=== PATIENT | male | born 1990 | race Caucasian/White ===

== ENCOUNTER 2021-01-28 08:40 | Outpatient (REF) | payer OTHER, SELFPAY | END 2021-01-28 08:41 | disposition home or self-care (01) | LOC: HO.HMGCLDS 08:40 | PROVIDERS: Visit Provider Internal Medicine | DX: Z20.822 Contact with and (suspected) exposure to COVID-19 (principal) | CPT/HCPCS: C9803; U0003; U0005 ==

== ENCOUNTER → 2021-06-17 10:09 | Outpatient (BNVA) | payer SELFPAY | PROVIDERS: Visit Provider Physician Assistant Medical | DX: Z02.79 Encounter for issue of other medical certificate (principal) ==

== ENCOUNTER 2021-07-28 14:37 | Emergency (ER) | payer OTHER, SELFPAY ==
--- NOTE | ~2021-07-28 | CT_ITS ---
CT HEAD WITHOUT IV CONTRAST CT CERVICAL SPINE WITHOUT IV CONTRAST INDICATION: Fall. Hit head. COMPARISON: None available. TECHNIQUE: Multidetector CT acquisitions of the head and cervical spine were obtained without IV contrast. Multiplanar reformats were acquired and utilized for image interpretation. This CT examination was performed using dose optimization techniques as appropriate, variously including the following: *Automated exposure control *Adjustment of mA and/or kV according to patient size (this includes techniques or standardized protocols for targeted exams where dose is matched to indication/reason for exam; i.e. extremities or head) *Use of iterative reconstruction technique FINDINGS: HEAD: There is no intracranial hemorrhage, hydrocephalus, extra-axial surface collection, midline shift, or other herniation pattern. Lennon to white matter differentiation is diffusely maintained without evidence of an evolved acute territorial infarct. The basilar cisterns are preserved. No significant soft tissue abnormality. No acute osseous abnormality. The paranasal sinuses and the mastoid air cells are well aerated. CERVICAL SPINE: There is anatomic alignment of the vertebral bodies and posterior elements. There is no acute fracture and there is no acute subluxation. The craniocervical and atlantoaxial articulations are normal. There is no prevertebral soft tissue swelling. No significant soft tissue abnormality within the neck. The visualized lung apices are clear. CT/CT cervical spine wo con IMPRESSION: - No acute intracranial findings. - No acute osseous findings within the cervical spine.
--- NOTE | ~2021-07-28 | XR_ITS ---
EXAMINATION: XR LUMBOSACRAL SPINE CLINICAL INFORMATION: Fall. COMPARISON: CT pelvis dated from 07/20/2016. TECHNIQUE: Three views of the lumbosacral spine. FINDINGS: No acute compression deformities. Minimal retrolisthesis of L5 on S1 is unchanged since 2017. Mild disc space narrowing at L5-S1 is also unchanged. Posterior elements are maintained. Sacroiliac joints are symmetric. Nonobstructive bowel gas pattern. XR/XR lumbar spine 2-3V IMPRESSION: No acute fractures or malalignment.
--- NOTE | ~2021-07-28 | CT_ITS ---
CT HEAD WITHOUT IV CONTRAST CT CERVICAL SPINE WITHOUT IV CONTRAST INDICATION: Fall. Hit head. COMPARISON: None available. TECHNIQUE: Multidetector CT acquisitions of the head and cervical spine were obtained without IV contrast. Multiplanar reformats were acquired and utilized for image interpretation. This CT examination was performed using dose optimization techniques as appropriate, variously including the following: *Automated exposure control *Adjustment of mA and/or kV according to patient size (this includes techniques or standardized protocols for targeted exams where dose is matched to indication/reason for exam; i.e. extremities or head) *Use of iterative reconstruction technique FINDINGS: HEAD: There is no intracranial hemorrhage, hydrocephalus, extra-axial surface collection, midline shift, or other herniation pattern. Lennon to white matter differentiation is diffusely maintained without evidence of an evolved acute territorial infarct. The basilar cisterns are preserved. No significant soft tissue abnormality. No acute osseous abnormality. The paranasal sinuses and the mastoid air cells are well aerated. CERVICAL SPINE: There is anatomic alignment of the vertebral bodies and posterior elements. There is no acute fracture and there is no acute subluxation. The craniocervical and atlantoaxial articulations are normal. There is no prevertebral soft tissue swelling. No significant soft tissue abnormality within the neck. The visualized lung apices are clear. CT/CT head/brain wo con IMPRESSION: - No acute intracranial findings. - No acute osseous findings within the cervical spine.
[2021-07-28 15:41] VITALS: BP 143/70; PULSE 60; RESP 17; TEMP 36.8; O2SAT 99; BMI 29.1
[2021-07-28 16:34] VITALS: BP 133/95; PULSE 61; RESP 18; O2SAT 98
--- NOTE | 2021-07-28 17:22 | ED_ITS ---
HPI - General Adult General Chief complaint: Fall Stated complaint: back inj snowboarding Time Seen by Provider: 07/28/21 16:38 Source: patient Mode of arrival: ambulatory Limitations: no limitations History of Present Illness HPI narrative: 30-year-old male is here today for complaining of back pain, neck pain and headache. Patient reports that he was snowboarding on Wednesday when he fell of a board and waited on his back. Patient reports that he hid middle of his back, lower back and his head. Patient denies LOC. He states that he was wearing helmet. Patient reports to have headaches. Patient has been having headache especially when he is looking at the phone screen for too long. Patient is worry about a concussion. Patient denies any nausea or vomiting. No fecal or rectal incontinence. Patient denies any tingling of his upper or lower extremities. Patient denies any other neurological symptoms. Onset (ago): day(s) Location: head and back Related Data Previous Rx's Medication Instructions Recorded ibuprofen 600 mg tablet 600 mg PO Q8H PRN #20 tab 07/28/21 Allergies Allergy/AdvReac Type Severity Reaction Status Date / Time No Known Allergies Allergy Unverified 02/22/20 16:47 Review of Systems Review of Systems: Constitutional : No Weight loss, No Fever, No Chills, No Night Sweats, No Fatigue, No Malaise ENT/Mouth : No Hearing loss, No Ear Pain, No Nasal Congestion, No Sinus Pain, No Hoarseness, No sore throat, No Rhinorrhea, No Swallowing Difficulty Eyes: No Eye Pain, No Swelling, No Redness, No Foreign Body, No Discharge, No Vision Changes Cardiovascular : No Chest Pain, No SOB, No Dyspnea on Exertion, No Orthopnea, No Edema, No Palpitations Respiratory : No Cough, No Sputum, No Wheezing, No Smoke Exposure, No Dyspnea Gastrointestinal : No Nausea, No Vomiting, No Diarrhea, No Constipation, No abdominal Pain, No Hematochezia, No Melena Genitourinary : no irregular bleeding, No Dysuria, No Urinary Frequency, No Hematuria, No Urinary Incontinence, No Urgency, No Flank Pain, No Urinary Flow Changes, No Hesitancy Musculoskeletal : No joint pain, Myalgias, No Joint Swelling, back pain, neck pain Skin : No Skin Lesions, No rash Neuro : No Weakness, No Numbness, No Paresthesias, No Loss of Consciousness, No Dizziness, No Headache Yes all other systems are reviewed and are negative Neurologic: Reports Abnormal speech present [facility] Past Medical History Medical History (Updated 07/29/21 @ 00:01 by Background Darandell) GERD (gastroesophageal reflux disease) Social History Social History Advance Directives: No Advance Directives Information Provided: Yes Physical Exam ED Vital Signs: Vital Signs - 24 hr 07/28/21 15:41 07/28/21 16:34 07/28/21 18:20 Temperature 98.2 F Pulse Rate 60 61 55 Respiratory Rate 17 18 16 Blood Pressure 143/70 H 133/95 H 137/86 Pulse Oximetry 99 98 99 BMI result Body Mass Index 29.1 Const General: cooperative, healthy appearing, comfortable and no acute distress Nutritional Appearance: average body habitus and well nourished Orientation/consciousness: patient oriented x3 Limitations: no limitations HENMT Head: Yes normal to inspection, Yes normocephalic and Yes atraumatic Ears: hearing grossly normal bilaterally, external ears normal and TM's normal bilaterally General nose exam: Normal external nose present and Normal nares present Face and sinus: Yes normal facial exam Mouth: Normal oral and palatal mucosa present Eyes General: appearance normal, both eyes and all related structures Alignment and Position: alignment normal Periorbital: periorbital findings normal Eyelids: Yes eyelids normal Conjunctivae: conjunctivae normal Pupils: Equal, round and reactive pupils present EOM: EOMs intact bilaterally Neck Neck: Yes normal visual inspection, Yes full ROM, Yes no lymphadenopathy, Yes trachea midline and Yes supple Resp Effort & Inspection: normal respiratory effort and able to speak in complete sentences Auscultation: clear to auscultation bilaterally Cardio Rate: regular rate Rhythm: regular rhythm General: Yes no CVA tenderness Back/Spine/Pelvis Back: no CVA tenderness Cervical Spine: normal cervical lordosis Thoracic/Lumbar Spine: thoracic and lumbar spine normal to inspection and paraspinal muscle tenderness Skin General skin exam: no rashes or lesions noted, elasticity normal and turgor normal Lesions: no lesions Rashes: no rashes Trauma: no lacerations or abrasions Neuro General: patient oriented x3 Cranial nerves: Yes Equal, round and reactive pupils present Cognition (Neuro): normal cognition Speech: Abnormal speech present Gait exam (Neuro): Normal gait present Motor exam (neuro): 5/5 motor strength present throughout Coordination: [id number] test normal Pupils: Normal pupillary reactivity/response: bilateral Extrem General: Yes normal to inspection, Yes full ROM and Yes capillary refill normal Course Course Course Narrative: 30-year-old male is here today for complaining of back pain, neck pain and headache. Patient reports that he was snowboarding on Wednesday when he fell of a board and waited on his back. Patient reports that he hid middle of his back, lower back and his head. Patient denies LOC. He states that he was wearing helmet. Patient reports to have headaches. Patient has been having headache especially when he is looking at the phone screen for too long. Patient is worry about a concussion. Patient denies any nausea or vomiting. No fecal or rectal incontinence. Patient denies any tingling of his upper or lower extremities. Patient denies any other neurological symptoms. Reevaluation(s) Reevaluation #1: Lumbar x-ray negative for any acute processes. CT of the head and CT of cervical spine also negative for any acute findings. Patient will be sent home to follow-up with his PCP. Patient was encouraged to avoid screen time for the next 72 hours. Avoid stimulation and rest. He was instructed to return to emergency department if he will experience any concerning symptoms. Medical Decision Making Imaging Data Lumbar and spine x-ray : Attestation: I personally reviewed and interpreted this imaging study as follows: Radiologist's impression: FINDINGS: No acute compression deformities. Minimal retrolisthesis of L5 on S1 is unchanged since 2017. Mild disc space narrowing at L5-S1 is also unchanged. Posterior elements are maintained. Sacroiliac joints are symmetric. Nonobstructive bowel gas pattern. Head and cervical spine CT : Radiologist's impression: FINDINGS: HEAD: There is no intracranial hemorrhage, hydrocephalus, extra-axial surface collection, midline shift, or other herniation pattern. Lennon to white matter differentiation is diffusely maintained without evidence of an evolved acute territorial infarct. The basilar cisterns are preserved. No significant soft tissue abnormality. No acute osseous abnormality. The paranasal sinuses and the mastoid air cells are well aerated. CERVICAL SPINE: There is anatomic alignment of the vertebral bodies and posterior elements. There is no acute fracture and there is no acute subluxation. The craniocervical and atlantoaxial articulations are normal. There is no prevertebral soft tissue swelling. No significant soft tissue abnormality within the neck. The visualized lung apices are clear. Discharge Plan Discharge Clinical Impression: Concussion without loss of consciousness, Fall Patient Disposition: Home, Self-Care Instructions: Head Injury (ED), Low Back Strain (ED), Lower Back Exercises (ED), Thoracic Back Strain (ED) Additional Instructions: You were seen here today after sustaining fall. Your x-rays and CT scans were all negative for any acute processes. You may continue to take ibuprofen. Please make sure you stay away from screen time in the next 72 hours. You may return to emergency department if you have any concerning symptoms. Please follow-up with your primary care provider Prescriptions: New ibuprofen 600 mg tablet 600 mg PO Q8H PRN (Reason: pain) Qty: 20 0RF Referrals: Hay Del Rosario III, MD [Primary Care Provider] - 10 days Stand Alone Forms: Work/School Release Interventions: ED Discharge Assessment Last Done: 07/28/21 19:37 Discharge Date/Time: 07/28/21 19:38
[2021-07-28] MEDS: Ibuprofen 600 MG TABLET PO (17:28)
[2021-07-28 18:20] VITALS: BP 137/86; PULSE 55; RESP 16; O2SAT 99
== END 2021-07-28 19:38 | disposition home or self-care (01) ==
PROVIDERS: Emergency Provider Emergency Medicine; PCP Internal Medicine
DX: S06.0X0A Concussion without loss of consciousness, initial encounter (principal); G44.309 Post-traumatic headache, unspecified, not intractable; M54.50 Low back pain, unspecified; M54.2 Cervicalgia; W00.0XXA Fall on same level due to ice and snow, initial encounter; Y93.23 Activity, snow (alpine) (downhill) skiing, snowboarding, sledding, tobogganing and snow tubing; Y92.838 Other recreation area as the place of occurrence of the external cause; Y99.8 Other external cause status
CPT/HCPCS: 70450; 72100; 72125; 99284

== ENCOUNTER → 2023-06-04 08:38 | Outpatient (BNVA) | payer SELFPAY | PROVIDERS: PCP Internal Medicine; Visit Provider Physician Assistant | DX: Z02.79 Encounter for issue of other medical certificate (principal) ==

== ENCOUNTER → 2025-04-26 11:03 | Outpatient (BNVA) | payer SELFPAY | PROVIDERS: PCP Internal Medicine; Visit Provider Physician Assistant | DX: Z02.79 Encounter for issue of other medical certificate (principal) ==